=== PATIENT | male | born 1945 | race Caucasian/White ===

== ENCOUNTER 2021-04-05 06:23 | Day surgery (SDC) | payer MEDICARE, OTHER ==
[2021-04-04 09:15] VITALS: BMI 23.9
[2021-04-05] MEDS ORDERED: Lidocaine 1% MPF 2 ML VIAL ONE (07:00)
[2021-04-05] MEDS ORDERED: EPINEPHrine 1 MG/ML AMP ONE (07:05)
[2021-04-05] MEDS ORDERED: Bupivacaine 0.25% HCL 30 ML VIAL ONE (07:05)
[2021-04-05] MEDS ORDERED: PROPOFOL 20 ML ONE (08:14)
[2021-04-05] MEDS ORDERED: Fentanyl 100 MCG/2 ML VIAL ONE (08:14)
[2021-04-05] MEDS ORDERED: Midazolam HCl 2 mg/2 ml Vial ONE (08:14)
[2021-04-05] MEDS ORDERED: Glycopyrrolate 0.2 MG/ML 5 ML SYRINGE ONE (08:15)
[2021-04-05] MEDS ORDERED: Lidocaine 1% PF 5 ML VIAL ONE (08:15)
[2021-04-05] MEDS ORDERED: Dexamethasone 4 mg/ml Vial ONE (08:15)
[2021-04-05] MEDS ORDERED: Ondansetron PF 4 MG/2 ML Vial ONE (08:15)
[2021-04-05] MEDS ORDERED: PHENYLEPHRINE-NS 100 MCG/ML 10 ML SYRINGE ONE (09:32)
== END 2021-04-05 10:55 | disposition home or self-care (01) ==
LOC: CSHSDC 06:23
PROVIDERS: ATTEND Surgery
DX: C22.0 Liver cell carcinoma (principal)
CPT/HCPCS: 36561; 82962; C1788; 36416; J0171; J0690; J1100; J1642; J2250; J2405; J2704; J3010; J3490; S0020